=== PATIENT | male | born 1940 | race Native Hawaiian/Other Pacific Islander ===

== ENCOUNTER 2017-07-23 10:20 | Outpatient (CLI) | payer OTHER ==
[~2017-07-23 10:20] MED LIST: ALLO300T23 PO; ASA LOW STR81 MG PO; BENZONATATE200 MG PO; FLUT0.05 NAS; GEMF600T17 PO; GLIP10TA55 PO; LISINOP/HCTZ1 TA2 PO; METFORMIN ER1000 MG PO; MONT10TA PO; OCUFLOX0.3 % OP; Z-PAK PO
== END 2017-07-23 18:02 | disposition home or self-care (01) ==
LOC: MRI 10:20
DX: M62.81 Muscle weakness (generalized) (principal)

== ENCOUNTER 2018-04-22 09:51 | Outpatient (CLI) | payer OTHER | END 2018-04-22 22:27 | disposition home or self-care (01) | LOC: RAD 09:51 | DX: R05 Cough (principal) ==

== ENCOUNTER 2018-04-23 11:16 | Outpatient (CLI) | payer OTHER | END 2018-04-23 19:39 | disposition home or self-care (01) | LOC: LABW 11:16 → CT 14:00 → LABW 19:39 | DX: R91.8 Other nonspecific abnormal finding of lung field (principal); N28.1 Cyst of kidney, acquired | CPT/HCPCS: 36415; 82565; 84520; Q9963 ==

== ENCOUNTER 2018-04-30 12:54 | Outpatient (CLI) | payer OTHER | END 2018-04-30 21:04 | disposition home or self-care (01) | LOC: RESP 12:54 | DX: R91.8 Other nonspecific abnormal finding of lung field (principal) ==

== ENCOUNTER 2018-05-22 08:59 | Outpatient (CLI) | payer OTHER | END 2018-05-22 20:07 | disposition home or self-care (01) | LOC: RESP 08:59 | DX: C85.90 Non-Hodgkin lymphoma, unspecified, unspecified site (principal); R91.8 Other nonspecific abnormal finding of lung field ==

== ENCOUNTER 2018-11-19 09:56 | Outpatient (CLI) | payer OTHER | END 2018-11-19 23:44 | disposition home or self-care (01) | LOC: RAD 09:56 | DX: M25.551 Pain in right hip (principal) ==

== ENCOUNTER 2019-04-03 05:42 | Outpatient (CLI) | payer OTHER ==
[2019-04-03 06:14] LABS: PLATELET COUNT 230 K/uL (142-355)
[2019-04-03 06:34] LABS: POTASSIUM 4.3 mmol/L (3.6-5.2); SODIUM 141 mmol/L (136-145)
== END 2019-04-03 21:43 | disposition home or self-care (01) ==
LOC: LABW 05:42
PROVIDERS: Internal Medicine
DX: Z00.00 Encounter for general adult medical examination without abnormal findings (principal); Z12.5 Encounter for screening for malignant neoplasm of prostate; C85.90 Non-Hodgkin lymphoma, unspecified, unspecified site; E11.8 Type 2 diabetes mellitus with unspecified complications; Z85.46 Personal history of malignant neoplasm of prostate
CPT/HCPCS: 36415; 80053; 80061; 81000; 82043; 82570; 83036; 84153; 84439; 84443; 85027

== ENCOUNTER 2020-06-24 06:45 | Outpatient (CLI) | payer OTHER ==
[2020-06-24 07:06] LABS: PLATELET COUNT 311 K/uL (142-355)
[2020-06-24 08:05] LABS: POTASSIUM 4.3 mmol/L (3.6-5.2)
== END 2020-06-24 19:25 | disposition home or self-care (01) ==
LOC: LABW 06:45
PROVIDERS: ATTEND Internal Medicine
DX: E11.9 Type 2 diabetes mellitus without complications (principal); C85.90 Non-Hodgkin lymphoma, unspecified, unspecified site
CPT/HCPCS: 36415; 80053; 80061; 81000; 82043; 82570; 83036; 84439; 84443; 85027

== ENCOUNTER 2020-11-02 08:07 | Outpatient (CLI) | payer OTHER ==
[2020-11-02 08:28] LABS: PLATELET COUNT 318 K/uL (142-355)
== END 2020-11-02 22:36 | disposition home or self-care (01) ==
LOC: LABW 08:07
PROVIDERS: ATTEND Internal Medicine
DX: E11.9 Type 2 diabetes mellitus without complications (principal)
CPT/HCPCS: 36415; 80061; 81000; 82043; 83036; 84439; 84443; 85027

== ENCOUNTER 2020-11-15 09:05 | Outpatient (CLI) | payer OTHER | END 2020-11-15 21:07 | disposition home or self-care (01) | LOC: MRI 09:05 | PROVIDERS: ATTEND Internal Medicine | DX: H34.11 Central retinal artery occlusion, right eye (principal) ==

== ENCOUNTER 2020-12-22 07:50 | Outpatient (CLI) | payer OTHER ==
[2020-12-22 08:22] LABS: PLATELET COUNT 282 K/uL (142-355)
[2020-12-22 08:56] LABS: POTASSIUM 4.2 mmol/L (3.6-5.2); SODIUM 143 mmol/L (136-145)
== END 2020-12-22 21:41 | disposition home or self-care (01) ==
LOC: LABW 07:50
PROVIDERS: ATTEND Internal Medicine
DX: Z00.00 Encounter for general adult medical examination without abnormal findings (principal); E11.49 Type 2 diabetes mellitus with other diabetic neurological complication; Z12.5 Encounter for screening for malignant neoplasm of prostate; N40.0 Benign prostatic hyperplasia without lower urinary tract symptoms
CPT/HCPCS: 36415; 80053; 80061; 81000; 82043; 82570; 83036; 84153; 84439; 84443; 85027

== ENCOUNTER 2021-07-12 09:02 | Outpatient (CLI) | payer OTHER ==
[2021-07-12 09:55] LABS: POTASSIUM 4.4 mmol/L (3.6-5.2)
== END 2021-07-12 20:19 | disposition home or self-care (01) ==
LOC: LABW 09:02
PROVIDERS: ATTEND Internal Medicine
DX: E11.9 Type 2 diabetes mellitus without complications (principal); E03.8 Other specified hypothyroidism; N18.9 Chronic kidney disease, unspecified
CPT/HCPCS: 36415; 80053; 80061; 81002; 82043; 83036; 84439; 84443

== ENCOUNTER 2022-06-20 09:06 | Outpatient (CLI) | payer OTHER ==
[2022-06-20 09:25] LABS: PLATELET COUNT 312 K/uL (142-355)
== END 2022-06-20 23:57 | disposition home or self-care (01) ==
LOC: LABW 09:06
PROVIDERS: ATTEND Internal Medicine
DX: E11.9 Type 2 diabetes mellitus without complications (principal); M1A.9XX0 Chronic gout, unspecified, without tophus (tophi)
CPT/HCPCS: 36415; 80053; 80061; 81002; 83036; 84439; 84443; 84550; 85027

== ENCOUNTER 2023-01-11 09:07 | Outpatient (CLI) | payer OTHER ==
[2023-01-11 09:21] LABS: PLATELET COUNT 342 K/uL (142-355)
[2023-01-11 09:42] LABS: POTASSIUM 4.2 mmol/L (3.6-5.2)
== END 2023-01-11 19:17 | disposition home or self-care (01) ==
LOC: LABW 09:07
PROVIDERS: ATTEND Internal Medicine
DX: E11.9 Type 2 diabetes mellitus without complications (principal)
CPT/HCPCS: 36415; 80053; 80061; 83036; 84439; 84443; 85027